=== PATIENT | male | born 1995 | race Asian ===

== ENCOUNTER 2019-06-23 10:54 | Emergency (ER) | payer OTHER ==
[2019-06-23 10:59] VITALS: BP 139/88
== END 2019-06-23 12:26 | disposition left against medical advice (07) ==
LOC: ED 10:54
DX: Z53.21 Procedure and treatment not carried out due to patient leaving prior to being seen by health care provider (principal)
CPT/HCPCS: 99281

== ENCOUNTER 2019-06-23 13:03 | Emergency (ER) | payer OTHER ==
--- NOTE | 2019-06-23 13:16 | UC ---
Laceration HPI - History Of Current Complaint Stated Complaint: HAND LAC Time Seen by Provider: 06/23/19 13:15 - Allergies/Home Medications Allergies/Adverse Reactions: Allergies Allergy/AdvReac Type Severity Reaction Status Date / Time No Known Allergies Allergy Verified 06/23/19 10:58 Discharge ED - Discharge Plan Referrals: No Primary Care Phys,NOPCP [Primary Care Provider] -
[2019-06-23 13:18] VITALS: BP 128/68
--- NOTE | 2019-06-23 13:32 | UC ---
Laceration HPI - HPI Summary HPI Summary: Patient is a 23yo male presenting with left hand laceration after cutting it on a glass bottle in chemistry class. Patient states wound was irrigated at school. Wound did bleed. Denies any foreign body. Denies numbness, tingling, or decreased ROM of hand. Denies pain. - History Of Current Complaint Chief Complaint: UCLaceration Stated Complaint: HAND LAC Time Seen by Provider: 06/23/19 13:15 Hx Obtained From: Patient Mechanism Of Injury: Sharp Trauma Pain Intensity: 0 - Allergies/Home Medications Allergies/Adverse Reactions: Allergies Allergy/AdvReac Type Severity Reaction Status Date / Time No Known Allergies Allergy Verified 06/23/19 13:18 PMH/Surg Hx/FS Hx/Imm Hx - Surgical History Surgical History: None - Family History Known Family History: Positive: Non-Contributory - Social History Alcohol Use: Occasionally Substance Use Type: None Smoking Status (MU): Never Smoked Tobacco - Immunization History Most Recent Tetanus Shot: unknown but thinks about a year ago. Review of Systems All Other Systems Reviewed And Are Negative: No Constitutional: Positive: Negative Skin: Positive: Other - left hand laceration Respiratory: Positive: Negative Cardiovascular: Positive: Negative Neurovascular: Negative: Decreased Sensation, Decreased Pulses Musculoskeletal: Positive: Negative. Negative: Arthralgia, Decreased ROM, Edema , Myalgia Neurological: Positive: Negative. Negative: Headache, Paresthesia, Numbness Psychological: Positive: Negative. Negative: Anxious Physical Exam Triage Information Reviewed: Yes Appearance: Well-Appearing, No Pain Distress, Well-Nourished Vital Signs: Initial Vital Signs Temp 99.8 F 06/23/19 13:13 Pulse 79 06/23/19 13:13 Resp 16 06/23/19 13:13 BP 128/68 06/23/19 13:13 Pulse Ox 98 06/23/19 13:13 Vital Signs Reviewed: Yes Eyes: Positive: Conjunctiva Clear ENT: Positive: Hearing grossly normal Neck: Positive: Supple Cardiovascular: Positive: Pulses Normal, Brisk Capillary Refill Musculoskeletal: Positive: Strength Intact, ROM Intact, No Edema Neurological Exam: Other - sensation grossly intact Neurological: Positive: Alert Psychological: Positive: Age Appropriate Behavior Skin: Positive: Other - 3cm laceration noted on palmar surface of left hand. blood noted. Laceration Repair - Laceration Repair 1 Description: Linear Laceration Size After Repair: Length (cm) - 3cm Type Injection: Local Anesthesia Used: 1.0% Lido Irrigation With Pressure Irrigation Device: Yes Closure Material: Sutures Closure Method: Single Layer Suture Of: Skin Suture Type: Prolene - Eight 5-[address] Laceration Course/Dx - Course/Dx Course Of Treatment: Discussed with patient to keep sutures clean and dry. Told to return or go to [facility] in 7-10 days to remove sutures. Instructed to return if wound comes apart. Patient may take over the counter pain medications as directed for pain relief. Patient instructed to return or go to the emergency department if they notice any redness, swelling, fluid drainage, fever, or nausea and vomiting. - Diagnosis Provider Diagnosis: Hand laceration Discharge ED - Sign-Out/Discharge Documenting (check all that apply): Patient Departure All imaging exams completed and their final reports reviewed: No Studies - Discharge Plan Condition: Stable Disposition: HOME Patient Education Materials: Care For Your Stitches (ED) Referrals: [facility] - Deng DOS SANTOS [Z.BUSINESS, APPLICATION, OTHER] - Additional Instructions: As discussed, keep your stitches clean and dry. Your stitches will not absorb. Return or go to [facility] in 7-10 days to remove your stitches. You may take over the counter pain medications as directed for pain relief. Return or go to the emergency department if you notice any redness, swelling, fluid drainage, fever, or nausea and vomiting. - Billing Disposition and Condition Condition: STABLE Disposition: Home
[2019-06-23] MEDS ORDERED: Lidocaine 1% MPF ** 5 ML VIAL INJ ONE (13:33)
== END 2019-06-23 14:20 | disposition home or self-care (01) ==
LOC: UCEAST 13:03
DX: S61.412A Laceration without foreign body of left hand, initial encounter (principal); W25.XXXA Contact with sharp glass, initial encounter; Y92.214 College as the place of occurrence of the external cause
CPT/HCPCS: 12002; 99201; G0463